=== PATIENT | female | born 1990 | race Caucasian/White ===

== ENCOUNTER 2025-10-12 12:52 | Emergency (ER) | payer BC, SELFPAY ==
--- NOTE | ~2025-10-12 | XR_ITS ---
Examination: XR chest 2V Clinical History: cough, fever Comparison: None Technique: PA and Lateral Findings: Cardiomediastinal silhouette normal size and configuration. Left lower lobe airspace disease. No acute bony abnormality. IMPRESSION: 1. Left lower lobe pneumonia. Reviewed, dictated and finalized at location R. OR VISUAL DESIGNER
[2025-10-12 13:18] VITALS: BP 121/82; PULSE 73; RESP 16; TEMP 37.1; O2SAT 96
--- NOTE | 2025-10-12 13:33 | ED_ITS ---
HPI - URI/Sore Throat General Chief Complaint: Upper Respiratory Infection Stated Complaint: sinus issues Patient presents to the [facility] with complaints worsening symptoms over the last 1-2 days. Patient noted that symptoms started 5 days ago chest congestion, cough, headache, nasal congestion and scratchy throat. Patient note d she has had a history of bronchitis and. Believe she had low-grade fevers last has been using some [id number] cough cold medication with minimal relief of symptoms. Denies dizziness, shortness of breath, wheezing, sinus pain, or difficulty swallowing. Related Data Home Medications ?Medication ?Instructions ?Recorded ?Confirmed ?Last Taken ?Type escitalopram oxalate 10 mg tablet mg 10/12/25 Unknown History trazodone 100 mg tablet 200 mg 10/12/25 Unknown His tory Allergies Allergy/AdvReac Type Severity Reaction Status Date / Time No Known Allergies Allergy Verified 10/12/25 13:21 Review of Systems Constitutional: Constitutional: Reports as per HPI, Denies chills, Reports fatigue, Reports fever(s) and Denies weakness Eyes: Eyes: Reports no additional eye complaints ENT: Reports as per HPI, Denies vertigo, Denies dizziness, Reports nasal congestion and Reports sore throat Cardiovascular: Cardiovascular: Reports no additional cardiovascular complaints Respiratory: Respiratory: Reports as per HPI, Reports chest congestion, Reports cough, Denies dyspnea and Denies wheezing Gastrointestinal: Gastrointestinal: Reports no additional gastrointestinal complaints Genitourinary: Genitourinary: Reports no additional female genitourinary complaints Musculoskeletal: Musculoskeletal: Reports as per HPI, Denies back pain and Reports myalgias Integumentary/Breasts: Skin/Breast: Reports as per HPI, Denies erythema and Denies rash Neurologic: Reports as per HPI, Denies vertigo, Denies dizziness, Reports headache(s) and Denies weakness Psychiatric: Psychiatric: Reports no additional psychiatric complaints Endocrine: Endocrine: Reports no additional endocrine complaints Hematologic/Lymphatic: Hematologic/Lymphatic: Reports no additional hematologic/lymphatic complaints Allergic/Immunologic: Allergic/Immunologic: Reports no additional allergic/immunologic complaints Exam Const: General: healthy appearing and no acute distress Nutritional Appearance: well nourished Orientation/consciousness: patient oriented x3 Limitations: no limitations HENMT: Head: normal to inspection Ears: external ears normal and TM's normal bilaterally Face/Nose/Sinus: Normal external nose present, Normal nares present and no nasal discharge noted Face and sinus: normal facial exam and sinuses nontender Mouth: Yes Normal oral and palatal mucosa present, Yes lip normal and Yes moist mucous membranes Throat: posterior oropharynx abnormal ( Minimal erythema with no edema or exudate) Neck: Neck: normal visual inspection and no lymphadenopathy Resp: Effort & Inspection: normal respiratory effort Auscultation: diminished lung sounds Cardio: Rate: regular rate Rhythm: regular rhythm Skin: General skin exam: normal color Rashes: no rashes Wounds: no wounds Neuro: General: patient oriented x3 Speech: normal speech Gait exam (Neuro): Normal gait present Psych: Mental Status: mental status grossly normal Affect: normal affect Attitude: cooperative Course Course Level of Care: Express Care Visit Vital Signs Vital signs: Vital Signs Temperature 98.8 F 10/12/25 13:18 Pulse Rate 73 10/12/25 13:18 Respiratory Rate 16 10/12/25 13:18 Blood Pressure 121/82 10/12/25 13:18 Pulse Oximetry 96 10/12/25 13:18 Temperature 98.8 F 10/12/25 13:18 Pulse Rate 73 10/12/25 13:18 Respiratory Rate 16 10/12/25 13:18 Blood Pressure 121/82 10/12/25 13:18 Pulse Oximetry 96 10/12/25 13:18 [facility] MDM Narrative Medical decision making narrative: chest x-ray ordered The patient was evaluated by myself in the express care. History is obtained from patient who is an independent historian and physical exam was performed. Available medical records were reviewed at this time. Exam findings show no acute concerns or changes; patient is non-toxic appearing and is in no distress. Patient is appropriate for outpatient treatment and follow-up. I have evaluated and discussed social determinants of health with the patient that could potentially impact subsequent diagnosis and treatment plans. Differential diagnosis and treatment plan were discussed with the patient. Patient agrees with discussion and after shared medical decision making agrees with plan of care. All questions were answered to the patient's satisfaction. Differential Diagnosis Differential Diagnosis: sinusitis, pneumonia, upper respiratory infection, pharyngitis Medical Records I have reviewed the following patient records and this information was taken into consideration when formulating the assessment and plan.: previous labs, previous ER visits, previous hospitalizations and previous clinic visits Imaging Data Radiologist's impression: ITS Impressions Chest X-Ray 10/12/25 13:47 IMPRESSION: 1. Left lower lobe pneumonia. IMPRESSION: 1. Left lower lobe pneumonia. Reviewed, dictated and finalized at location R. AL ASSISTANT INSTRUCTOR Discharge Plan Discharge Clinical Impression: Pneumonia Patient Disposition: Home Condition: Stable Instructions: Antibiotic Form, Community Acquired Pneumonia (ED) Additional Instructions: your x-ray shows left lower lobe pneumonia. Patient follow-up with primary care physician and have a repeat chest x-ray in 2-4 weeks unless symptoms worsen. Take the antibiotics as directed for the entire course. Do not miss any doses. What you are taking antibiotics and is recommended to take a probiotic or have yogurt daily to return the good gut bacteria to your system. This can also help with acute diarrhea while taking antibiotics. It can take 24-48 hours for the antibiotics to start to relieve your symptoms continue to take these medications to help with various symptoms: Tylenol or Motrin for pain, headache, or fever Flonase/fluticasone or Nasacort/triamcinolone nasal spray- helps with congestion and nasal drainage. Sudafed/pseudoephedrine helps with sinus pain and congestion. Caution with high blood pressure. Use a humidifier or vaporizer at night. Drink plenty of water. 8-10 glasses per day. Mucinex/[place] directed and be sure to take with 8oz of water. Warm compresses over the forehead and cheeks to promote sinus drainage. Return to urgent care or go to the ER for new or worsening symptoms. Follow up with Primary provider if not improved after 1 week. Patient Language: [place] Prescriptions: New azithromycin 250 mg tablet See Rx Instructions .ROUTE .COMPLEX Qty: 6 0RF Rx Instructions: For 250 mg dose pack: take 500 mg today (day 1), then 250 mg for 4 days (days 2-5) amoxicillin-pot clavulanate 875-125 mg tablet 1 tablet PO Q12H Qty: 20 0RF No Action trazodone 100 mg tablet 200 mg escitalopram oxalate 10 mg tablet Follow-up/Referrals: PHYSICIAN,TELLERS SUPERVISOR [Primary Care Provider, Internal Medicine] Time of Disposition: 13:52
== END 2025-10-12 13:50 | disposition home or self-care (01) ==
PROVIDERS: Emergency Provider Nurse Practitioner Family
DX: J18.9 Pneumonia, unspecified organism (principal)
CPT/HCPCS: 71046; 99213; G0463